=== PATIENT | female | born 1975 | race African-American/Black ===

== ENCOUNTER 2022-10-24 08:35 | Emergency (ER) | payer MEDICAID, OTHER ==
[~2022-10-24] VITALS: Ht 172.7 cm; Wt 80.0 kg
[2022-10-24 09:13] VITALS: BP 151/71
[2022-10-24] MEDS ORDERED: ACETAMINOPHEN 500 MG TAB PO ONE (09:45)
[2022-10-24] MEDS ORDERED: CEPH500C PO (09:51)
[2022-10-24] MEDS ORDERED: ACET-1080 PO (09:51)
[2022-10-24] MEDS ORDERED: PROM1SOL4 PO (09:51)
== END 2022-10-24 10:17 | disposition home or self-care (01) ==
LOC: EDSEX 08:35 → ER 08:35 → EDBD 08:35 → ER 09:57
DX: J20.9 Acute bronchitis, unspecified (principal); Z32.02 Encounter for pregnancy test, result negative
CPT/HCPCS: 71046; 81002; 81025